=== PATIENT | female | born 2000 | race Two or more races ===

== ENCOUNTER 2025-05-22 07:51 | Inpatient (IN) | payer OTHER ==
[~2025-05-22] VITALS: Ht 170.2 cm; Wt 76.3 kg
--- NOTE | 2025-05-22 08:41 | ED.PDOC ---
SOB-HPI HPI Comments 24 year old female presents to the ED with a chief complaint of shortness of breath onset 2 days. Patient states she has been experiencing shortness of breath with inhalation, chest pain as well as nausea/vomiting, diffused abdominal pain. Patient has experienced similar symptoms in the past, have resolved on its own. Denies dysuria, hematuria, fevers, chills, dizziness, cough, cold, congestion,headache. No other symptoms or modifying factors present at this time. 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: No Pertinent HEAD GAUGE UNIT OPERATOR History Family History Family History: Reviewed,noncontributory to illness, No family hx of Cancer, No family hx of DM, No family hx of Heart pebbles, No family hx of HTN, No family hx ofKidney pebbles, No family hx of Liver pebbles, No family hx of Lung pebbles, No family hx of Stroke Social History Smoker: Non-Smoker Alcohol: Denies ETOH Use Drugs: Denies Drug Use Lives In: Home Constitutional: denies: chills, diaphoresis, fatigue, fever, malaise, sweats, weakness, others EENTM: denies: blurred vision, double vision, ear bleeding, ear discharge, ear drainage, ear pain, ear ringing, eye pain, eye redness, hearing loss, mouth pain, mouth swelling, nasal discharge, nose bleeding, nose congestion, nose p ain, photophobia, tearing, throat pain, throat swelling, voice changes, others Respiratory: denies: cough, hemoptysis, orthopnea, SOB at rest, shortness of breath, SOB with excertion, stridor, wheezing, others Cardiovascular: reports: chest pain; denies: dizzy spells, diaphoresis, Dyspnea on exertion, edema, irregular heart beat, left arm pain, lightheadedness, palpitations, PND, syncope, others Gastrointestinal: reports: abdominal pain, nausea, vomiting; denies: abdomen distended, blood streaked bowels, constipated, diarrhea, dysphagia, difficulty swallowing, hematemesis, melena, poor appetite, poor fluid intake, rectal bleeding, rectal pain, others Genitourinary: denies: abnormal vagina bleeding, burning, dyspareunia, dysuria, flank pain, frequency, hematuria, incontinence, pain, , vagina discharge, urgency, others Neurological: denies: dizziness, fainting, headache, left sided numbness, left sided weakness, numbness, paresthesia, pre-existing deficit, right sided numbness, right sided weakness, seizure, speech problems, tingling, tremors, weakness, others Musculoskeletal: denies: back pain, gout, joint pain, joint swelling, muscle pain, muscle stiffness, neck pain, others Integumetry: denies: bruises, change in color, change in hair/nails, dryness, laceration, lesions, lumps, rash, wounds, others Allergic/Immunocompromised: denies: Difficulty Healing, Frequent Infections, Hives, Itching, others Hematologic/Lymphatic: denies: anemia, blood clots, easy bleeding, easy bruising, swollen glands, others Endocrine: denies: excessive hunger, excessive sweating, excessive thirst, excessive urination, flushing, intolerance to cold, intolerance to heat, unexplained weight gain, unexplained weight loss, others Psychiatric: denies: anxiety, bipolar disorder, depression, hopeless, panic disorder, schizophrenia, sleepless, suicidal, others All Other Systems: Reviewed and Negative Physical Exam General Appearance: Moderate Distress, Normal HEENT: Normal ENT Inspection, Pharynx Normal, TMs Normal Neck: Full Range of Motion, Non-Tender, Normal, Normal Inspection Respiratory: Chest Non-Tender, Lungs Clear, No Accessory Muscle Use, No Respiratory Distress, Normal Breath Sounds Cardiovascular: No Edema, No JVD, No Murmur, No Gallop, Normal Peripheral Pulses, Regular Rate/Rhythm Breast Exam: Deferred Gastrointestinal: No Organomegaly, Non Tender, No Pulsatile Mass, Normal Bowel Sounds, Soft Genitalia: Deferred Pelvic: Deferred Rectal: Deferred Extremities: No calf tenderness, Normal capillary refill, Normal inspection, Normal range of motion, Non-tender, No pedal edema Musculoskeletal : Apperance: Normal Neurologic: Alert, counseling center manager II-XII nml as Tested, No Motor Deficits, Normal Affect, Normal Mood, No Sensory Deficits Cerebellar Function: Normal Reflexes: Normal Skin: Dry, Normal Color, Warm Peripheral Pulses: 3+ Radial (R), 3+ Radial (L) Lymphatic: No Adenopathy EKG EKG : Pulse Rate (adult): 86 Cardiac Rhythm: NSR Was a procedure done? Was a procedure done?: No Differential Dx Differential Diagnosis: Anxiety, Asthma, Bronchitis X-Ray, Labs, Meds, VS Vital Signs Date Time Temp Pulse Resp B/P (MAP) Pulse Ox O2 Delivery O2 Flow Rate FiO2 05/22/25 08:41 86 05/22/25 08:05 86 05/22/25 07:52 98.7 105 15 144/94 100 98.7 Lab Test 05/22/25 08:25 Range/Units White Blood Count 18.6 H 4.4-10.8 10^3/uL Red Blood Count 4.74 4.0-5.20 10^6/uL Hemoglobin 14.3 12.2-16.2 g/dL Hematocrit 43.1 36.0-46.0 % Mean Corpuscular Volume 90.9 80.0-100.0 fL Mean Corpuscular Hemoglobin 30.2 28.0-32.0 pg Mean Corpuscular Hemoglobin Concent 33.2 32.0-36.0 g/dL Red Cell Distribution Width 13.0 11.8-14.3 % Platelet Count 310 140-450 10^3/uL Mean Platelet Volume 10.1 6.9-10.8 fL Neutrophils (%) (Auto) 86.7 H 37.0-80.0 % Lymphocytes (%) (Auto) 4.8 L 10.0-50.0 % Monocytes (%) (Auto) 8.2 0.0-12.0 % Eosinophils (%) (Auto) 0.0 0.0-7.0 % Basophils (%) (Auto) 0.3 0.0-2.0 % Neutrophils # (Auto) 16.2 H 1.6-8.6 10 ^3/uL Lymphocytes # (Auto) 0.9 0.4-5.4 10 ^3/uL Monocytes # (Auto) 1.5 H 0-1.3 10 ^3/uL Eosinophils # (Auto) 0 0-0.8 10 ^3/uL Basophils # (Auto) 0 0-0.2 10 ^3/uL Nucleated Red Blood Cells 0.0 % Sodium Level 140 136-145 mmol/L Potassium Level 3.0 L 3.5-5.1 mmol/L Chloride Level 99 98-107 mmol/L Carbon Dioxide Level 21 20-31 mmol/L Anion Gap 20 H 5-15 Blood Urea Nitrogen 13 9-23 mg/dL Creatinine 0.88 0.550-1.02 mg/dL Glomerular Filtration Rate Calc 93 >90 mL/min BUN/Creatinine Ratio 14.8 10.0-20.0 Serum Glucose 116 H 74-106 mg/dL Calcium Level 10.3 8.7-10.4 mg/dL Troponin I High Sensitivity 12 </=34 ng/L Patient alert. Complaining of abdominal pain. Vitals stable. Answering questions. Establish intravenous access. Was given fluids. Was given pain medication. Was given Zofran. Was given Rocephin. Was given Flagyl. Continue monitoring. Continue monitoring. Time of 1ST Reevaluation: 09:05 Reevaluation 1ST: Unchanged Patient Education/Counseling: Diagnosis, Treatment, Prognosis Family Education/Counseling: No Family Present SEPSIS Sepsis Screen Date sepsis recognized/suspect: May 22, 2025 Time Sepsis recognized/suspect: 075 Recent Procedure: No On Antibiotic Therapy: No Respiratory Rate >20: No Heart Rate >90: Yes Temp<36 C (96.8 F) or >38.3 C: No SBP <90 or MAP <65 mmHG: No New Acute Mental Status Change: No Is the patient on CPAP, BIPAP,: No Physician Orders Electrocardigram (05/22/25 08:01) Urinalysis (05/22/25 08:08) Sodium Chloride 0.9% (05/22/25 08:45) Sodium Chloride 0.9% (05/22/25 08:45) Vital Signs Date Time Temp Pulse Resp B/P (MAP) Pulse Ox O2 Delivery O2 Flow Rate FiO2 05/22/25 08:41 86 05/22/25 08:05 86 05/22/25 07:52 98.7 105 15 144/94 100 98.7 Laboratory Tests Test 05/22/25 08:25 White Blood Count 18.6 10^3/uL (4.4-10.8) H Departure 1 Departure Time of Disposition: 09:06 Impression: Primary Impression: Sepsis, unspecified organism Qualified Codes: A41.9 - Sepsis, unspecified organism Disposition: 09 ADMITTED INPATIENT Admit to: Med Surg Condition: Guarded Critical Care Note Critical Care Time?: Yes (90 min-critical care time only) Stability Stability form required: No Heart Score Heart Score: Heart Score Response (Comments) Value History Slightly Suspicious 0 EKG Normal 0 Age <45 0 Risk Factors No known risk factors 0 Troponin Normal limit 0 Total 0 I personally scribed for CAROLINA TRAN MD ([email or web address]) on 05/22/25 at 08:41. Electronically submitted by Nadine Thompson ([email or web address]). I personally scribed for CAROLINA TRAN MD ([email or web address]) on 05/22/25 at 08:41. Electronically submitted by Nadine Thompson ([email or web address]). CAROLINA TRAN MD May 22, 2025 08:41
[2025-05-22 08:46] LABS: Hematocrit 43.1 % (36.0-46.0); Hemoglobin 14.3 g/dL (12.2-16.2); Mean Corpuscular Hemoglobin 30.2 pg (28.0-32.0); Mean Corpuscular Volume 90.9 fL (80.0-100.0); Nucleated Red Blood Cells % 0.0 %
[2025-05-22 08:53] LABS: Chloride 99 mmol/L (98-107); Sodium 140 mmol/L (136-145)
[2025-05-22 08:54] LABS: Anion Gap 20 (5-15); Calcium 10.3 mg/dL (8.7-10.4); Carbon Dioxide 21 mmol/L (20-31)
[2025-05-22 08:59] LABS: BUN/Creatinine Ratio 14.8 (10.0-20.0); Blood Urea Nitrogen 13 mg/dL (9-23); Glucose 116 mg/dL (74-106); Potassium 3.0 mmol/L (3.5-5.1)
[2025-05-22] MEDS: ONDANSETRON HCL 4 MG/2 ML VIAL IV ONE (09:38)
[2025-05-22] MEDS: MORPHINE SULFATE 4 MG/ML SYR/VIAL IV ONE (09:39)
[2025-05-22] MEDS: SODIUM CHLORIDE 0.9% 1,000 ML IV ONE ×2 (09:40→12:32)
[2025-05-22 09:45] LABS: Urine Protein, UAD 2+ (Negative)
[2025-05-22 10:01] LABS: Lactic Acid w/Reflex 2.3 mmol/L (0.4-2.0)
[2025-05-22] MEDS ORDERED: ONDANSETRON HCL 4 MG/2 ML VIAL IV PRN (10:30)
[2025-05-22] MEDS: PIPERACILLIN-TAZO 4.5GM 100 ML IV ONE (10:30)
--- NOTE | 2025-05-22 11:28 | DVH ---
Indication: appy Technique: CT axial images of the abdomen and pelvis are obtained without contrast. Coronal and sagittal reformats were obtained. Radiation Dose Information: CTDI volume is 11.53 mGy. Dose-length product is 661.76 mGy*cm Comparison: None FINDINGS: There is limited interpretation of the abdomen and pelvis without administration of intravenous contrast. Lung bases demonstrate no pleural effusion. Adrenal glands, spleen, pancreas, liver unremarkable in shape. No CT evidence for cholelithiasis. There is no hydronephrosis, nephrolithiasis. Stomach partially distended. Small bowel loops are normal in caliber. Normal appendix. Large bowel normal in caliber. Bladder partially distended. No free pelvic fluid. No inguinal lymphadenopathy. No aggressive osseous process. IMPRESSION: Limited evaluation without contrast. No evidence for acute appendicitis.
[2025-05-22] MEDS: LACTATED RINGER'S 1,000 ML IV ONE (12:32)
[2025-05-22] MEDS: PANTOPRAZOLE 40 MG/10 ML VIAL INJ IV ONE (12:38)
[2025-05-22 12:42] LABS: Alanine Aminotransferase 21.0 U/L (7-40); Alkaline Phosphatase 84.0 U/L (46-116); Lipase 44.0 U/L (12-53); Magnesium 1.8 mg/dL (1.6-2.6); Total Protein 7.0 g/dL (5.7-8.2)
[2025-05-22 12:43] LABS: Albumin 4.7 g/dL (3.2-4.8); Bilirubin, Total 0.9 mg/dL (0.2-1.0)
--- NOTE | 2025-05-22 12:48 | DVHHPRES ---
History of Present Illness Resident Creating Document: AVNI PLATT RESIDENT History of Present Illness 24-year-old female with past medical history of anxiety/panic disorder, recurrent vomiting episodes presented with complaints of vomiting episodes for last three days and chest pain for last two days. Patient mentioned that three days ago she started having vomiting episodes which she attributes to drinking alcohol on . She has a previous history of multiple admissions in the ER for intractable vomiting where she was treated with metoclopramide and Zofran. Patient never had any EGD done and never had a colonoscopy done. She also reported associated chest pain for last two days, which increased on deep inspiration and improved on lying flat. She never had any chest pain before. yesterday she so noted blood in the vomitus, both coffee-ground color and occasional streaks of bright red blood in vomitus. She also mentioned associated epigastric pain which is now better with pain medications. She currently does not have any nausea or vomiting as she received Zofran. She denied any complaint of shortness of breath, can walk for one mile. She denied any diarrhea/constipation. She denied any cough, fever, chills, headache, dizziness. Past medical history Recent strep throat infection treated with antibiotics Anxiety Panic attack disorder Frequent admissions for intractable vomiting Past surgical history No recent surgery Family history Breast cancer in multiple family members including sister and aunt in 20s Social history Patient does not have a PCP Lives with sister Occasional alcohol intake, last alcohol was at the day of where she drank cans of wine Denied smoking Medication history Zofran Metoclopramide in the past Allergic history No known allergies Review of Systems Review of Systems As described in the HPI Allergies: Coded Allergies: NO KNOWN ALLERGIES (Unverified , 05/22/25) Medications Current Medications Medications Dose Ordered Sig/Gloria Route Start Time Stop Time Status Last Admin Dose Admin Ondansetron HCl 4 mg Q4HP PRN IV 05/22/25 10:30 Potassium Chloride 100 ml @ 50 mls/hr Q2H IV 05/22/25 10:30 05/22/25 16:29 Piperacillin Sod/ Tazobactam Sod 100 ml @ 25 mls/hr Q6H IV 05/22/25 16:00 Pantoprazole Sodium 40 mg BID IV 05/22/25 22:00 Exam Vital Signs Vital Signs Date Time Temp Pulse Resp B/P (MAP) Pulse Ox O2 Delivery O2 Flow Rate FiO2 05/22/25 12:15 98.7 68 17 111/56 (74) 99 98.7 05/22/25 09:40 Room Air Exam Examination General Appearance: Alert, Oriented X3, Cooperative, No acute distress HEENT: EOMI Respiratory: Clear to auscultation, Normal air movement Cardiovascular: Regular rate, Normal S1, Normal S2 Abdominal: Normal bowel sounds, mild epigastric tenderness Extremities: No cyanosis, No edema, Normal pulses, No tenderness/swelling Skin: No rashes, No breakdown Neuro: Normal speech and tone Labs/Xrays Labs Test 05/22/25 11:00 05/22/25 09:33 05/22/25 08:25 Range/Units Lactic Acid Level 0.8 0.4-2.0 mmol/L Urine Color Yellow Yellow Urine Clarity Turbid H Clear Urine pH 5.5 5.0-9.0 Urine Specific [place] 1.036 H 1.001-1.035 Urine Protein 2+ H Negative Urine Ketones 4+ H Negative Urine Blood 2+ H Negative /uL Urine Nitrite Negative Negative Urine Bilirubin Negative Negative Urine Urobilinogen Normal Negative mg/dL Urine Leukocyte Esterase Negative Negative /uL Urine RBC 11 0 - 4 /hpf Urine Microscopic WBC 3 0-5 /HPF Urine Squamous Epithelial Cells Few <5 /hpf Urine Bacteria None seen None Seen /hpf Urine Mucus Few None Seen Urine Glucose Normal Normal mg/dL Urine Test Negative Negative White Blood Count 18.6 H 4.4-10.8 10^3/uL Red Blood Count 4.74 4.0-5.20 10^6/uL Hemoglobin 14.3 12.2-16.2 g/dL Hematocrit 43.1 36.0-46.0 % Mean Corpuscular Volume 90.9 80.0-100.0 fL Mean Corpuscular Hemoglobin 30.2 28.0-32.0 pg Mean Corpuscular Hemoglobin Concent 33.2 32.0-36.0 g/dL Red Cell Distribution Width 13.0 11.8-14.3 % Platelet Count 310 140-450 10^3/uL Mean Platelet Volume 10.1 6.9-10.8 fL Neutrophils (%) (Auto) 86.7 H 37.0-80.0 % Lymphocytes (%) (Auto) 4.8 L 10.0-50.0 % Monocytes (%) (Auto) 8.2 0.0-12.0 % Eosinophils (%) (Auto) 0.0 0.0-7.0 % Basophils (%) (Auto) 0.3 0.0-2.0 % Neutrophils # (Auto) 16.2 H 1.6-8.6 10 ^3/uL Lymphocytes # (Auto) 0.9 0.4-5.4 10 ^3/uL Monocytes # (Auto) 1.5 H 0-1.3 10 ^3/uL Eosinophils # (Auto) 0 0-0.8 10 ^3/uL Basophils # (Auto) 0 0-0.2 10 ^3/uL Nucleated Red Blood Cells 0.0 % Sodium Level 140 136-145 mmol/L Potassium Level 3.0 L 3.5-5.1 mmol/L Chloride Level 99 98-107 mmol/L Carbon Dioxide Level 21 20-31 mmol/L Anion Gap 20 H 5-15 Blood Urea Nitrogen 13 9-23 mg/dL Creatinine 0.88 0.550-1.02 mg/dL Glomerular Filtration Rate Calc 93 >90 mL/min BUN/Creatinine Ratio 14.8 10.0-20.0 Serum Glucose 116 H 74-106 mg/dL Calcium Level 10.3 8.7-10.4 mg/dL Troponin I High Sensitivity 12 </=34 ng/L SEPSIS Sepsis Screen Date sepsis recognized/suspect: May 22, 2025 Time Sepsis recognized/suspect: 075 Recent Procedure: No On Antibiotic Therapy: No Respiratory Rate >20: No Heart Rate >90: Yes Temp<36 C (96.8 F) or >38.3 C: No SBP <90 or MAP <65 mmHG: No New Acute Mental Status Change: No Is the patient on CPAP, BIPAP,: No Physician Orders Electrocardigram (05/22/25 08:01) Sodium Chloride 0.9% (05/22/25 08:45) Blood Culture (05/22/25 09:06) Ct Ab Pel Wo Con-No Oral Or Iv (05/22/25 09:40) Admit (05/22/25 10:25) Allergies (05/22/25 10:25) Code Status (05/22/25 10:25) Ondansetron Hcl (Zofran) (05/22/25 10:30) Complete Blood Count (05/23/25 04:00) Comprehensive Metabolic Panel (05/23/25 04:00) Npo (Nothing By Mouth) Diet (05/22/25 Lunch) Notify Of Changes From Base (05/22/25 10:25) Vc++ Developer For 24 Hours (05/22/25 10:25) Emergency Dysrhythmia Protocol (05/22/25 10:25) Rhythm Strips Once Every Shift (05/22/25 10:25) Potassium Chl 20meq/100ml (05/22/25 10:30) Magnesium (05/22/25 10:25) Lipase (05/22/25 10:25) Hepatic Panel (05/22/25 10:25) Mrsa Screen (05/22/25 10:25) Drug Screen (05/22/25 10:25) Covid19 Antigen [place] (05/22/25 ) Piperacillin-Tazob 3.375gm (Zosyn 3.375g (05/22/25 16:00) * [facility] Professional (05/22/25 10:30) Pantoprazole (Protonix) (05/22/25 22:00) Lactated Ringer's (05/22/25 10:30) Beta-Hydroxybutyrate (05/22/25 10:32) Vital Signs Date Time Temp Pulse Resp B/P (MAP) Pulse Ox O2 Delivery O2 Flow Rate FiO2 05/22/25 12:15 98.7 68 17 111/56 (74) 99 98.7 05/22/25 09:40 98.6 92 18 124/100 (108) 99 98.6 05/22/25 09:40 92 18 99 Room Air 05/22/25 09:39 92 19 124/100 05/22/25 08:41 86 05/22/25 08:05 86 05/22/25 07:52 98.7 105 15 144/94 100 98.7 Laboratory Tests Test 05/22/25 08:25 05/22/25 09:16 05/22/25 11:00 White Blood Count 18.6 10^3/uL (4.4-10.8) H Lactic Acid Level 2.3 mmol/L (0.4-2.0) *H 0.8 mmol/L (0.4-2.0) Medications Medications Dose Ordered Sig/Gloria Route Start Time Stop Time Status Last Admin Dose Admin Ceftriaxone Sodium 50 ml @ 100 mls/hr ONCE ONCE IV 05/22/25 09:15 05/22/25 09:44 DC 05/22/25 09:39 100 MLS/HR Morphine Sulfate 4 mg ONCE ONCE IV 05/22/25 08:45 05/22/25 08:46 DC 05/22/25 09:39 4 MG Ondansetron HCl 4 mg ONCE ONCE IV 05/22/25 08:45 05/22/25 08:46 DC 05/22/25 09:38 4 MG Sodium Chloride 1,000 ml @ 1,000 mls/hr Q1H ONCE IV 05/22/25 08:45 05/22/25 09:44 DC 05/22/25 09:40 1,000 MLS/HR Assessment/Plan Assessment/Plan Assessment/plan # SIRS/sepsis likely due to gastroenteritis, other source of infection not identified yet # intractable vomiting, likely due to above # upper GI bleed, likely Sara-Barnes tear because of multiple episodes of vomiting # starvation ketosis -IV fluids 30 cc/kg received in the ER Maintenance lactated ringer at 75 cc per hour Blood cultures Lactic acid, trending downwards IV Zosyn IV Protonix 40 mg b.i.d. GI consulted for evaluation for upper GI endoscopy Zofran IV p.r.n. EKG ordered for chest pain # hypokalemia secondary to GI losses -replacement with potassium -Monitor BMP # history of anxiety/panic disorder -Ativan PRN # DVT prophylaxis -we will avoid Lovenox because of upper GI bleed, patient is currently ambulatory Code status discussed with the patient for greater than 21 minutes, full code Case discussed with Dr. Dumont Plan discussed with: Patient, Other My Orders Orders - AVNI PLATT RESIDENT Procedure Category Date Status Time Admit ADMIT 05/22/25 Transmitted 10:25 Allergies VEE 05/22/25 In Process 10:25 Code Status CODE 05/22/25 Transmitted 10:25 Ondansetron Hcl PHA 05/22/25 In Process (Zofran) 10:30 Complete Blood Count LAB 05/23/25 Verified 04:00 Comprehensive LAB 05/23/25 Verified Metabolic Panel 04:00 Npo (Nothing By DIET 05/22/25 Transmitted Mouth) Diet Lunch Notify Of Changes VEE 05/22/25 In Process From Base 10:25 Vc++ Developer For VEE 05/22/25 In Process 24 Hours 10:25 Emergency Dysrhythmia VEE 05/22/25 In Process Protocol 10:25 Rhythm Strips Once [facility] 05/22/25 In Process Every Shift 10:25 Potassium Chl PHA 05/22/25 In Process 20meq/100ml 10:30 Magnesium LAB 05/22/25 In Process 10:25 Lipase LAB 05/22/25 In Process 10:25 Hepatic Panel LAB 05/22/25 In Process 10:25 Mrsa Screen [id number] 05/22/25 Logged 10:25 Drug Screen LAB 05/22/25 Logged 10:25 Covid19 Antigen [place] LAB 05/22/25 Logged Piperacillin-Tazob PHA 05/22/25 In Process 3.375gm (Zosyn 3.375g 16:00 * [facility] CONS 05/22/25 Transmitted 10:30 Pantoprazole PHA 05/22/25 In Process (Protonix) 22:00 Lactated Ringer's PHA 05/22/25 In Process 10:30 Beta-Hydroxybutyrate LAB 05/22/25 In Process 10:32 Date of Service: May 22, 2025 Billing Provider: ORESTES DUMONT MD Common Visit Codes: [id number] INP/OBS CARE (HIGH) Secondary Visit Codes: [id number] CARE PLAN 30 MINUTES AVNI PLATT RESIDENT May 22, 2025 12:48 ORESTES DUMONT MD May 23, 2025 01:48
[2025-05-22] MEDS: POTASSIUM EFFERVESENT TAB 25 MEQ PO ONE (12:50)
[2025-05-22 13:02] LABS: Bilirubin, Direct 0.3 mg/dL (<0.3)
[2025-05-22 13:50] LABS: COVID19 ANTIGEN SOFIA FIA NEGATIVE (NEGATIVE)
--- NOTE | 2025-05-22 13:56 | DVHINCON2 ---
GI Consult Consult Note GI consult note Date of Consultation: 05/22/2025 Chief Complaint: GI bleed Referring Physician: Dr. Landry H&P: 24-year-old female with past medical history of anxiety panic disorder seen in ER [facility] with complains of nausea and vomiting for the past three days with multiple episodes of vomiting with yellow vomitus with streaks of blood and some coughing grounds also. Patient denies melena or red blood in stool. Complains of abdominal pain in the upper abdomen. Similar symptoms about a month ago. Usually triggered after drinking alcohol. Patient also admits to using marijuana every day. No EGD in past. Denies NSAIDs use Past Medical History: Anxiety, panic attack disorder Past Surgical History: Denies Social History: NO smoking, occasional drinking ETOH + marijuana use Family History: Noncontributory Review of Systems: Constitutional: no fever, chill, weight loss HEENT: no eye pain, no hearing loss, no oral lesion, no scleral icterus Heart: no chest pain, no chest pressure Lung: no cough, no dyspnea with exertion Abdomen: see HPI Physical exam: General: NAD, AAOX3 Chest: lung herrera clear to auscultation Heart: RRR, no murmur Abdomen: non-distended, + epigastric tenderness to palpation, +BS Labs: Labs Test 05/22/25 11:00 05/22/25 10:33 05/22/25 09:33 05/22/25 08:25 Range/Units Lactic Acid Level 0.8 0.4-2.0 mmol/L Magnesium Level 1.8 1.6-2.6 mg/dL Total Bilirubin 0.9 0.2-1.0 mg/dL Direct Bilirubin 0.3 <0.3 mg/dL Aspartate Amino Transferase (AST) 39 13-40 U/L Alanine Aminotransferase (ALT) 21 7-40 U/L Alkaline Phosphatase 84 46-116 U/L Total Protein 7.0 5.7-8.2 g/dL Albumin 4.7 3.2-4.8 g/dL Lipase 44 12-53 U/L Beta-Hydroxybutyric Acid 3.825 H < 0.4 mmol/L SARS-CoV-2 Antigen (Rapid) Negative NEGATIVE Urine Color Yellow Yellow Urine Clarity Turbid H Clear Urine pH 5.5 5.0-9.0 Urine Specific [place] 1.036 H 1.001-1.035 Urine Protein 2+ H Negative Urine Ketones 4+ H Negative Urine Blood 2+ H Negative /uL Urine Nitrite Negative Negative Urine Bilirubin Negative Negative Urine Urobilinogen Normal Negative mg/dL Urine Leukocyte Esterase Negative Negative /uL Urine RBC 11 0 - 4 /hpf Urine Microscopic WBC 3 0-5 /HPF Urine Squamous Epithelial Cells Few <5 /hpf Urine Bacteria None seen None Seen /hpf Urine Mucus Few None Seen Urine Glucose Normal Normal mg/dL Urine Test Negative Negative White Blood Count 18.6 H 4.4-10.8 10^3/uL Red Blood Count 4.74 4.0-5.20 10^6/uL Hemoglobin 14.3 12.2-16.2 g/dL Hematocrit 43.1 36.0-46.0 % Mean Corpuscular Volume 90.9 80.0-100.0 fL Mean Corpuscular Hemoglobin 30.2 28.0-32.0 pg Mean Corpuscular Hemoglobin Concent 33.2 32.0-36.0 g/dL Red Cell Distribution Width 13.0 11.8-14.3 % Platelet Count 310 140-450 10^3/uL Mean Platelet Volume 10.1 6.9-10.8 fL Neutrophils (%) (Auto) 86.7 H 37.0-80.0 % Lymphocytes (%) (Auto) 4.8 L 10.0-50.0 % Monocytes (%) (Auto) 8.2 0.0-12.0 % Eosinophils (%) (Auto) 0.0 0.0-7.0 % Basophils (%) (Auto) 0.3 0.0-2.0 % Neutrophils # (Auto) 16.2 H 1.6-8.6 10 ^3/uL Lymphocytes # (Auto) 0.9 0.4-5.4 10 ^3/uL Monocytes # (Auto) 1.5 H 0-1.3 10 ^3/uL Eosinophils # (Auto) 0 0-0.8 10 ^3/uL Basophils # (Auto) 0 0-0.2 10 ^3/uL Nucleated Red Blood Cells 0.0 % Sodium Level 140 136-145 mmol/L Potassium Level 3.0 L 3.5-5.1 mmol/L Chloride Level 99 98-107 mmol/L Carbon Dioxide Level 21 20-31 mmol/L Anion Gap 20 H 5-15 Blood Urea Nitrogen 13 9-23 mg/dL Creatinine 0.88 0.550-1.02 mg/dL Glomerular Filtration Rate Calc 93 >90 mL/min BUN/Creatinine Ratio 14.8 10.0-20.0 Serum Glucose 116 H 74-106 mg/dL Calcium Level 10.3 8.7-10.4 mg/dL Troponin I High Sensitivity 12 </=34 ng/L Imaging: CT abdomen pelvis IMPRESSION: Limited evaluation without contrast. No evidence for acute appendicitis. Assessment: Intractable nausea and vomiting Upper GI bleed Sepsis History of marijuana use History of anxiety panic disorder Plan: Discussed with Dr. Menjivar - Pt will be scheduled for an EGD tomorrow 05/23/2025. Pt was informed of the risks (bleeding, infection, perforation, reaction to sedation medications and cardiopulmonary arrest) and benefit and is agreeable to undergo the procedures. Protonix and Zofran Continue IV antibiotic Monitor lab Thank you for this consult Date of Service: May 22, 2025 Billing Provider: LEONARD HORTON Common Visit Codes: CONSULT ONLY Consultation Codes: [id number] CONSULT <60MIN LEONARD HORTON May 22, 2025 13:56
[2025-05-22 14:51] LABS: INR 1.03 (0.9-1.15); Prothrombin Time 10.9 sec (9.3-11.8)
[2025-05-22] MEDS: POTASSIUM CHL 20MEQ/100ML 100 ML IV SCH (16:12)
[2025-05-22] MEDS: PIPERACILLIN-TAZOB 3.375GM 100 ML IV SCH (16:12)
[2025-05-22 17:00] VITALS: BP 96/57; PULSE 72; RESP 17; TEMP 98.4; O2SAT 98
[2025-05-22] MEDS ORDERED: LORazepam 2MG/ML-1ML VIAL IV PRN (18:00)
--- NOTE | 2025-05-22 18:36 | DVH ---
CHEST RADIOGRAPH Indication: Chest pain Technique: Single frontal view of the chest was obtained COMPARISON: None FINDINGS: Lines and Tubes: None Lungs: Clear Pleura: No effusion. No pneumothorax. Cardiomediastinal contours: Unremarkable Bones: Unremarkable IMPRESSION: No acute disease.
[2025-05-22 20:00] VITALS: PULSE 79; RESP 17; O2SAT 99
[2025-05-22 21:00] VITALS: BP 127/48; PULSE 87; RESP 17; TEMP 98.5; O2SAT 99
[2025-05-22] MEDS: PANTOPRAZOLE 40 MG/10 ML VIAL INJ IV SCH (21:28)
[2025-05-22 23:45] LABS: Amphetamine Screen, Urine Neg (NEGATIVE); Barbiturate Scree,Urine Neg (NEGATIVE); Benzodiazephine Screen, Urine Neg (NEGATIVE); Cannabinoid Screen, Urine Pos (NEGATIVE); Cocaine Screen, Urine Neg (NEGATIVE); Opiate Scree,Urine Neg (NEGATIVE); Phencyclidine Screen, Urine Neg (NEGATIVE)
[2025-05-23 05:00] VITALS: BP 108/42; PULSE 68; RESP 15; TEMP 98.1; O2SAT 96
[2025-05-23 07:52] LABS: Hematocrit 36.5 % (36.0-46.0); Hemoglobin 12.1 g/dL (12.2-16.2); Mean Corpuscular Hemoglobin 30.5 pg (28.0-32.0); Mean Corpuscular Volume 91.7 fL (80.0-100.0); Nucleated Red Blood Cells % 0.0 %
[2025-05-23 07:56] LABS: Alanine Aminotransferase 17 U/L (7-40); Alkaline Phosphatase 70 U/L (46-116); Anion Gap 15 (5-15); BUN/Creatinine Ratio 11.9 (10.0-20.0); Blood Urea Nitrogen 10 mg/dL (9-23); Calcium 8.9 mg/dL (8.7-10.4); Carbon Dioxide 23 mmol/L (20-31); Chloride 105 mmol/L (98-107); Glucose 89 mg/dL (74-106); Sodium 143 mmol/L (136-145); Total Protein 6.4 g/dL (5.7-8.2)
[2025-05-23 07:57] LABS: Albumin 4.2 g/dL (3.2-4.8); Bilirubin, Total 1.2 mg/dL (0.2-1.0)
[2025-05-23 07:58] LABS: Potassium 3.1 mmol/L (3.5-5.1)
[2025-05-23 08:00] VITALS: PULSE 65
[2025-05-23 09:00] VITALS: BP 99/52; PULSE 65; RESP 17; TEMP 98; O2SAT 94
[2025-05-23] MEDS: SODIUM CHLORIDE 0.9% 1,000 ML IV ONE (09:43)
[2025-05-23] MEDS: POTASSIUM CHL 20MEQ/100ML 100 ML IV SCH (09:54)
[2025-05-23 13:00] VITALS: BP 95/49; PULSE 65; RESP 17; TEMP 98.2; O2SAT 99
--- NOTE | 2025-05-23 15:17 | DVHPN2 ---
Progress Note - Dictate Date Seen: May 23, 2025 (Late entry Time of visit 2:00 p.m.) Medical Necessity Reason Pt with a Central, PICC or Fol: No Subjective No new complaints No further episodes of vomiting Hemoglobin dropped down to 12.2 Patient was kept NPO for an EGD today vital signs Vital Sign Date Time Temp Pulse Resp B/P (MAP) Pulse Ox O2 Delivery O2 Flow Rate FiO2 05/23/25 13:00 98.2 65 17 95/49 (64) 99 98.2 05/23/25 08:00 Room Air* 0 21 Total Intake and Output 05/22/25 05/22/25 05/23/25 15:00 23:00 07:00 Intake Total 100 ml 0 ml Balance 100 ml 0 ml medications Current Medications Medications Dose Ordered Sig/Gloria Route Start Time Stop Time Status Last Admin Dose Admin Ondansetron HCl 4 mg Q4HP PRN IV 05/22/25 10:30 Pantoprazole Sodium 40 mg BID IV 05/22/25 22:00 05/23/25 09:35 40 MG Lorazepam 0.5 mg Q6HP PRN IV 05/22/25 18:00 objective General: NAD, AAOX3 Chest: lung herrera clear to auscultation Heart: RRR, no murmur Abdomen: non-distended, + epigastric tenderness to palpation, +BS laboratory and microbiology Laboratory Tests 05/23/25 07:06 Test 05/23/25 07:06 Range/Units Serum Glucose 89 74-106 mg/dL Problems(with codes): (1) Upper GI bleed (2) Nausea & vomiting (3) Leukocytosis Prognosis Plan Patient was tentatively scheduled for an EGD this afternoon However when we called the patient for an EGD at 2:00 pm she decided to leave AMA She was hemodynamically stable and outpatient follow up with GI Services as needed was advised Plan discussed with: Other (ER nurse) BRYAN VIRGEN MD May 23, 2025 15:17
--- NOTE | 2025-05-23 16:48 | DVHDSRES ---
Discharge Summary Date of Admission Resident Creating Document: THOMAS SCOTT RESIDENT May 22, 2025 at 10:25 Date of Discharge: May 23, 2025 Admitting Diagnosis sepsis likely to gastroenteritis Labs/Diagnostic Data: Laboratory Results Test 05/23/25 07:06 05/22/25 14:10 05/22/25 11:00 05/22/25 10:33 White Blood Count 7.1 10^3/uL (4.4-10.8) Red Blood Count 3.98 10^6/uL (4.0-5.20) Hemoglobin 12.1 g/dL (12.2-16.2) Hematocrit 36.5 % (36.0-46.0) Mean Corpuscular Volume 91.7 fL (80.0-100.0) Mean Corpuscular Hemoglobin 30.5 pg (28.0-32.0) Mean Corpuscular Hemoglobin Concent 33.3 g/dL (32.0-36.0) Red Cell Distribution Width 13.3 % (11.8-14.3) Platelet Count 226 10^3/uL (140-450) Mean Platelet Volume 9.9 fL (6.9-10.8) Neutrophils (%) (Auto) 64.1 % (37.0-80.0) Lymphocytes (%) (Auto) 21.8 % (10.0-50.0) Monocytes (%) (Auto) 12.9 % (0.0-12.0) Eosinophils (%) (Auto) 0.5 % (0.0-7.0) Basophils (%) (Auto) 0.7 % (0.0-2.0) Neutrophils # (Auto) 4.5 10 ^3/uL (1.6-8.6) Lymphocytes # (Auto) 1.5 10 ^3/uL (0.4-5.4) Monocytes # (Auto) 0.9 10 ^3/uL (0-1.3) Eosinophils # (Auto) 0 10 ^3/uL (0-0.8) Basophils # (Auto) 0.1 10 ^3/uL (0-0.2) Nucleated Red Blood Cells 0.0 % Sodium Level 143 mmol/L (136-145) Potassium Level 3.1 mmol/L (3.5-5.1) Chloride Level 105 mmol/L (98-107) Carbon Dioxide Level 23 mmol/L (20-31) Anion Gap 15 (5-15) Blood Urea Nitrogen 10 mg/dL (9-23) Creatinine 0.84 mg/dL (0.550-1.02) Glomerular Filtration Rate Calc 99 mL/min (>90) BUN/Creatinine Ratio 11.9 (10.0-20.0) Serum Glucose 89 mg/dL (74-106) Calcium Level 8.9 mg/dL (8.7-10.4) Total Bilirubin 1.2 mg/dL (0.2-1.0) Aspartate Amino Transferase (AST) 25 U/L (13-40) Alanine Aminotransferase (ALT) 17 U/L (7-40) Alkaline Phosphatase 70 U/L (46-116) Total Protein 6.4 g/dL (5.7-8.2) Albumin 4.2 g/dL (3.2-4.8) Prothrombin Time 10.9 sec (9.3-11.8) Prothrombin Time INR 1.03 (0.9-1.15) Lactic Acid Level 0.8 mmol/L (0.4-2.0) Magnesium Level 1.8 mg/dL (1.6-2.6) Direct Bilirubin 0.3 mg/dL (<0.3) Lipase 44 U/L (12-53) Beta-Hydroxybutyric Acid 3.825 mmol/L (< 0.4) SARS-CoV-2 Antigen (Rapid) Negative (NEGATIVE) Test 05/22/25 09:33 05/22/25 08:25 Urine Color Yellow (Yellow) Urine Clarity Turbid (Clear) Urine pH 5.5 (5.0-9.0) Urine Specific [place] 1.036 (1.001-1.035) Urine Protein 2+ (Negative) Urine Ketones 4+ (Negative) Urine Blood 2+ /uL (Negative) Urine Nitrite Negative (Negative) Urine Bilirubin Negative (Negative) Urine Urobilinogen Normal mg/dL (Negative) Urine Leukocyte Esterase Negative /uL (Negative) Urine RBC 11 /hpf (0 - 4) Urine Microscopic WBC 3 /HPF (0-5) Urine Squamous Epithelial Cells Few /hpf (<5) Urine Bacteria None seen /hpf (None Seen) Urine Mucus Few (None Seen) Urine Glucose Normal mg/dL (Normal) Urine Test Negative (Negative) Urine Opiates Screen Neg (NEGATIVE) Urine Fentanyl Screen Neg (NEGATIVE) Urine Barbiturates Screen Neg (NEGATIVE) Urine Phencyclidine Screen Neg (NEGATIVE) Urine Amphetamines Screen Neg (NEGATIVE) Urine Benzodiazepines Screen Neg (NEGATIVE) Urine Cocaine Screen Neg (NEGATIVE) Urine Cannabinoids Screen Pos (NEGATIVE) Troponin I High Sensitivity 12 ng/L (</=34) Other Laboratory Tests 05/23/25 07:06 Brief Hx & Hospital Course: Clara Lancaster is a 24-year-old female with past medical history of anxiety/panic disorder who presented to the ED with the chief complaint of intractable vomiting since 3 days. The patient mentioned she started having intractable vomiting 3 days back after having multiple alcoholic drinks on . She also noticed bright red blood in the vomitus and dark coffee colored vomitus. This was associated with epigastric pain, nonradiating, 8/10 in intensity, which improved with pain medication. She also complained of chest pain after the multiple episodes of vomiting, which increased on deep inspiration and improved on lying flat. Denied any fever, chills, cough, shortness of breath. She had an episode of similar vomitus with dark-colored previously after having alcoholic drinks. The patient was evaluated by GI was scheduled for EGD this afternoon. Patient was explained that she needs IV fluids for the dehydration and starvation ketosis she is not able to tolerate anything orally, but she left AMA. Past medical history: Anxiety, panic disorder, frequent admissions for intractable vomiting Past surgical history: Denies Social & Personal history: Lives with sister, does not have PCP Smoking: Denies Alcohol: Occasional alcohol intake Drugs: Denies Allergies: No known allergies Physical examination could not be completed as the patient left AMA. Operations or Procedures 1.PROCEDURE(s): ABPL - CT AB PEL WO CON-NO ORAL OR IV REASON: appy ORDER NUMBER(s): [id number], ACCESSION NUMBER(s): [id number] Indication: appy Technique: CT axial images of the abdomen and pelvis are obtained without contrast. Coronal and sagittal reformats were obtained. Radiation Dose Information: CTDI volume is 11.53 mGy. Dose-length product is 661.76 mGy*cm Comparison: None FINDINGS: There is limited interpretation of the abdomen and pelvis without administration of intravenous contrast. Lung bases demonstrate no pleural effusion. Adrenal glands, spleen, pancreas, liver unremarkable in shape. No CT evidence for cholelithiasis. There is no hydronephrosis, nephrolithiasis. Stomach partially distended. Small bowel loops are normal in caliber. Normal appendix. Large bowel normal in caliber. Bladder partially distended. No free pelvic fluid. No inguinal lymphadenopathy. No aggressive osseous process. IMPRESSION: Limited evaluation without contrast. No evidence for acute appendicitis. 2.PROCEDURE(s): CXRP - CHEST PORTABLE REASON: Chest pain ORDER NUMBER(s): [id number], ACCESSION NUMBER(s): [id number] CHEST RADIOGRAPH Indication: Chest pain Technique: Single frontal view of the chest was obtained COMPARISON: None FINDINGS: Lines and Tubes: None Lungs: Clear Pleura: No effusion. No pneumothorax. Cardiomediastinal contours: Unremarkable Bones: Unremarkable IMPRESSION: No acute disease. Condition at Discharge: Unstable Final Diagnosis/Problems List Sepsis likely due to gastroenteritis, likely bacterial Intractable vomiting, likely due to above Upper GI bleed, likely Sara-Barnes tear because of multiple episodes of vomiting Starvation ketosis Hypokalemia secondary to GI losses History of anxiety/panic disorder Discharge Disposition: AMA Discharge Statement: "Patient was advised to return to the ER or call 911 if any headaches, dizziness, shortness of breath, chest pain, abdominal pain, bleeding, fevers, or worsening of medical condition. Patient was counseled about treatment plan, medications, possible side effects, patientverbalized understanding. All questions were answered to the best of my ability. This discharge took greater then 30 minutes in planning, reviewing documentation, counseling the patient, and discussing with other team members." ASSESSMENT ASSESSMENT Assessment Visit Coding STANDARD RES Billing Provider: CRIS CHOU MD Date of Service if different f: May 23, 2025 Common Visit Codes: 06132-ABC/OBS DISCH DAY >30min THOMAS SCOTT RESIDENT May 23, 2025 16:48 CRIS CHOU MD May 23, 2025 19:14
--- NOTE | 2025-05-24 12:14 | ECG ---
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
== END 2025-05-23 14:32 | disposition left against medical advice (07) | DRG 720 ==
LOC: ER 07:51 → OVERFLOW 10:25
PROVIDERS: ADMIT Student in an Organized Health Care Education/Training Program; ATTEND Student in an Organized Health Care Education/Training Program
DX: A41.9 Sepsis, unspecified organism (principal); K92.2 Gastrointestinal hemorrhage, unspecified; K22.6 Gastro-esophageal laceration-hemorrhage syndrome; A04.9 Bacterial intestinal infection, unspecified; E87.6 Hypokalemia; F41.0 Panic disorder [episodic paroxysmal anxiety]; Z20.822 Contact with and (suspected) exposure to COVID-19; Z53.29 Procedure and treatment not carried out because of patient's decision for other reasons; T73.0XXA Starvation, initial encounter; Z80.3 Family history of malignant neoplasm of breast
CPT/HCPCS: 36415; 71045; 74176; 80048; 80053; 80076; 80307; 81001; 81025; 82010; 83605; 83690; 83735; 84484; 85025; 85610; 86850; 86900; 86901; 87040; 87426; 93005; 99291; 99292; G0378; J2405; J2470; J2543; J3480; J3490